=== PATIENT | female | born 1985 | race African-American/Black ===

== ENCOUNTER 2024-05-22 05:46 | Inpatient (IN) | payer SELFPAY ==
[2024-05-22] MEDS: Lactated Ringers 1,000 ML IV SCH (06:20)
[2024-05-22] MEDS ORDERED: Citric Acid/Sodium Citrate Solution 30 ML Cup PO ONE (06:23)
[2024-05-22] MEDS ORDERED: Ondansetron 4 MG/2 ML SDV IVPUSH PRN ×3 (06:23→07:39)
[2024-05-22] MEDS ORDERED: Sodium Chloride 0.9% 2.5 ML Syringe FLUSH PRN (06:23)
[2024-05-22] MEDS ORDERED: Sodium Chloride 0.9% 10 ML Syringe FLUSH PRN (06:23)
[2024-05-22] MEDS ORDERED: Sodium Chloride 0.9% 20 ML SDV IV PRN (06:23)
[2024-05-22] MEDS ORDERED: ceFAZolin 2 GM in Sodium Chloride 0.9% 50 ML IV ONE (06:23)
[2024-05-22] MEDS ORDERED: Oxytocin/0.9 % Sodium Chloride 30 UNIT/500 ML BAG IV SCH (06:30)
[2024-05-22 06:40] LABS: HEMATOCRIT 34.8 % (37.0-47.0); MEAN CORPUSCULAR HEMOGLOBIN 29.3 pg (28.0-32.0); MEAN CORPUSCULAR HGB CONC 34.5 g/dL (32.0-36.0); MEAN CORPUSCULAR VOLUME 85.1 fL (83.0-99.0); MEAN PLATELET VOLUME 12.6 fL (9.4-12.3); PLATELET COUNT,PLT 152 K/uL (150-400); RED BLOOD CELL COUNT 4.09 M/uL (4.10-5.30); WHITE BLOOD CELL COUNT,WBC 9.27 K/uL (3.9-11.3)
[2024-05-22] MEDS ORDERED: Ketorolac 30 MG/ML SDV ONE (07:14)
[2024-05-22] MEDS ORDERED: EPINEPHrine 1 MG/1 ML Amp ONE (07:14)
[2024-05-22] MEDS ORDERED: Oxytocin 10 Units/1 ML SDV ONE (07:14)
[2024-05-22] MEDS ORDERED: Bupivacaine 0.25% 30 ML SDV ONE (07:14)
[2024-05-22] MEDS ORDERED: Morphine PF 10 MG/10 ML SDV ONE (07:14)
[2024-05-22] MEDS ORDERED: Ropivacaine 0.5% 5 MG/ML 30 ML SDV ONE (07:14)
[2024-05-22] MEDS ORDERED: ceFAZolin 1 GM Vial ONE (07:14)
[2024-05-22] MEDS ORDERED: Ondansetron 4 MG/2 ML SDV ONE (07:14)
[2024-05-22] MEDS ORDERED: fentaNYL 100 MCG/2 ML SDV ONE (07:14)
[2024-05-22] MEDS ORDERED: Phenylephrine HCl In 0.9% NaCl 1 MG/10 ML Syringe ONE ×2 (07:15→09:02)
[2024-05-22] MEDS ORDERED: diphenhydrAMINE 50 MG/ML SDV IVPUSH PRN ×2 (07:39→13:35)
[2024-05-22] MEDS ORDERED: Nalbuphine 10 MG/1 ML Vial IVPUSH PRN (07:39)
[2024-05-22] MEDS ORDERED: Naloxone 0.4 MG/ML SDV IVPUSH PRN (07:39)
[2024-05-22] MEDS ORDERED: Metoclopramide 10 MG/2 ML SDV IVPUSH PRN (07:39)
[2024-05-22] MEDS ORDERED: Phenylephrine HCl In 0.9% NaCl 1 MG/10 ML Syringe IVPUSH PRN (07:39)
[2024-05-22] MEDS ORDERED: HYDROmorphone 1 MG/ML Syringe IVPUSH PRN (07:39)
[2024-05-22] MEDS ORDERED: fentaNYL 50 MCG/ML SDV IVPUSH PRN (07:39)
[2024-05-22] MEDS ORDERED: Acetaminophen/oxyCODONE 325-5 MG Tab PO PRN ×2 (07:39→13:35)
[2024-05-22] MEDS ORDERED: fentaNYL 100 MCG/2 ML SDV IVPUSH PRN (07:39)
[2024-05-22] MEDS ORDERED: ePHEDrine 50 MG/ML SDV IM PRN (07:39)
[2024-05-22] MEDS ORDERED: Albuterol 0.083% 2.5 MG/3 ML Neb Soln NEB PRN (07:39)
[2024-05-22] MEDS ORDERED: Morphine 2 MG/ML SYRINGE IVPUSH PRN (07:39)
[2024-05-22] MEDS ORDERED: Misoprostol 200 MCG Tab RECTAL PRN ×2 (08:15→13:35)
[2024-05-22] MEDS ORDERED: Acetaminophen 1,000 MG in Premix Bag 1 BAG IV SCH (10:00)
[2024-05-22] MEDS: Acetaminophen 1,000 MG in Premix Bag 1 BAG IV SCH (10:57)
[2024-05-22] MEDS ORDERED: Metoclopramide 10 MG/2 ML SDV IVPUSH ONE (11:11)
[2024-05-22 13:07] LABS: MEAN CORPUSCULAR HEMOGLOBIN 29.5 pg (28.0-32.0); MEAN CORPUSCULAR HGB CONC 34.5 g/dL (32.0-36.0); MEAN CORPUSCULAR VOLUME 85.5 fL (83.0-99.0); MEAN PLATELET VOLUME 12.5 fL (9.4-12.3); PLATELET COUNT,PLT 175 K/uL (150-400); RED BLOOD CELL COUNT 3.39 M/uL (4.10-5.30); WHITE BLOOD CELL COUNT,WBC 14.88 K/uL (3.9-11.3)
[2024-05-22 13:14] LABS: INR 0.99 (0.86-1.11); PTT,PARTIAL THROMBOPLSTIN TIME 29.6 SEC (23.9-30.7)
[2024-05-22 13:30] LABS: A/G RATIO 0.5 (0.9-1.6); ALBUMIN 2.1 g/dL (3.4-5.0); BILIRUBIN TOTAL 0.3 mg/dL (0.2-1.0); CARBON DIOXIDE,CO2 22.4 mmol/L (21.0-32.0); CREATININE 0.7 mg/dL (0.6-1.0); EST CRCL DRUG DOSING (CG) 90.14 mL/min; POTASSIUM,K 4.6 mmol/L (3.5-5.1)
[2024-05-22] MEDS ORDERED: Lanolin 100% Cream 7 GM Tube TOP PRN (13:35)
[2024-05-22] MEDS ORDERED: Bisacodyl 10 MG Supp RECTAL PRN (13:35)
[2024-05-22] MEDS ORDERED: Oxytocin 10 Units/1 ML SDV IM PRN (13:35)
[2024-05-22] MEDS ORDERED: Methylergonovine 0.2 MG/1 ML Amp IM PRN (13:35)
[2024-05-22] MEDS ORDERED: Lactated Ringers 1,000 ML IV SCH (13:45)
[2024-05-22] MEDS ORDERED: Ketorolac 30 MG/ML SDV IVPUSH SCH (13:45)
[2024-05-22] MEDS: Ondansetron 4 MG/2 ML SDV IVPUSH PRN (14:10)
[2024-05-22] MEDS: Ketorolac 30 MG/ML SDV IVPUSH SCH (15:24)
[2024-05-22] MEDS: Misoprostol 200 MCG Tab ONE (17:44)
[2024-05-23] MEDS: Docusate Sodium 100 MG Cap PO SCH (05:15)
[2024-05-23 05:48] LABS: HEMATOCRIT 22.8 % (37.0-47.0); HEMOGLOBIN 7.9 g/dL (12.0-16.0)
[2024-05-23] MEDS ORDERED: oxyCODONE 5 MG Tab PO PRN (05:58)
[2024-05-23] MEDS: Acetaminophen 500 MG Tab PO SCH (06:31)
[2024-05-23] MEDS: Ibuprofen 800 MG Tab PO SCH (09:09)
[2024-05-23] MEDS: oxyCODONE 5 MG Tab PO PRN (11:52)
[2024-05-23] MEDS ORDERED: Lidocaine 1% 2 ML ONE (12:11)
[2024-05-23] MEDS: Acetaminophen 1,000 MG in Premix Bag 1 BAG IV ONE ×2 (12:49→18:31)
[2024-05-23] MEDS: Sodium Ferric Gluconate Cmplex 125 MG in Sodium Chloride 0.9% 100 ML IV SCH (13:17)
[2024-05-23] MEDS ORDERED: Ibuprofen 800 MG Tab PO PRN (13:35)
[2024-05-23] MEDS: Ketorolac 30 MG/ML SDV IVPUSH SCH (15:08)
[2024-05-23 17:15] LABS: BASOPHILS ABSOLUTE AUTO 0.02 K/uL (0.00-0.20); BASOPHILS PERCENT AUTO 0.1 % (0.0-1.0); EOSINOPHILS ABSOLUTE AUTO 0.12 K/uL (0.00-0.45); EOSINOPHILS PERCENT AUTO 0.7 % (0.0-6.0); HEMATOCRIT 22.5 % (37.0-47.0); IMMATURE GRAN ABSOLUTE AUTO 0.21 K/uL (0.00-0.05); IMMATURE GRAN PERCENT AUTO 1.2 % (0.0-0.4); LYMPHOCYTES ABSOLUTE AUTO 2.15 K/uL (1.00-4.80); LYMPHOCYTES PERCENT AUTO 11.9 % (24.0-44.0); MEAN CORPUSCULAR HEMOGLOBIN 30.4 pg (28.0-32.0); MEAN CORPUSCULAR HGB CONC 35.6 g/dL (32.0-36.0); MEAN CORPUSCULAR VOLUME 85.6 fL (83.0-99.0); MEAN PLATELET VOLUME 11.7 fL (9.4-12.3); MONOCYTES ABSOLUTE AUTO 1.35 K/uL (0.00-0.80); MONOCYTES PERCENT AUTO 7.4 % (0.0-8.0); NEUTROPHILS ABSOLUTE AUTO 14.29 K/uL (1.80-7.70); NEUTROPHILS PERCENT AUTO 78.7 % (41.0-71.0); PLATELET COUNT,PLT 165 K/uL (150-400); RED BLOOD CELL COUNT 2.63 M/uL (4.10-5.30); WHITE BLOOD CELL COUNT,WBC 18.14 K/uL (3.9-11.3)
[2024-05-24] MEDS: Acetaminophen/oxyCODONE 325-5 MG Tab PO PRN (02:52)
[2024-05-24] MEDS: Sodium Ferric Gluconate Cmplex 125 MG in Sodium Chloride 0.9% 100 ML IV SCH (12:40)
== END 2024-05-24 18:30 | disposition home or self-care (01) | DRG 788 ==
LOC: MW.OB 05:46
PROVIDERS: ADMIT Obstetrics & Gynecology Obstetrics; ATTEND Obstetrics & Gynecology Obstetrics
PROC: 10D00Z1 Extraction of Products of Conception, Low, Open Approach (ICD-10-PCS; principal; 2024-05-22 08:00)
DX: O44.03 Complete placenta previa NOS or without hemorrhage, third trimester (principal); E66.9 Obesity, unspecified; O24.420 Gestational diabetes mellitus in childbirth, diet controlled; O99.214 Obesity complicating childbirth; Z37.0 Single live birth; Z3A.36 36 weeks gestation of pregnancy; Z79.899 Other long term (current) drug therapy
CPT/HCPCS: 01961; 36415; 59025; 64488; 80053; 82947; 85014; 85018; 85025; 85027; 85384; 85610; 85730; 86592; 86850; 86900; 86901; 86920; A9270-GY; J0131; J0171; J0665; J0690; J1100; J1885; J2274; J2371; J2405; J2590; J2795; J2916; J3010; J3490; J7120